=== PATIENT | male | born 1940 | race Caucasian/White ===

== ENCOUNTER 2017-03-15 09:38 | Day surgery (SDC) | payer OTHER ==
[~2017-03-15 09:38] MED LIST: NS 500 ML IV 500 ML IV ONE; VERSED ONE
[2017-03-15] MEDS ORDERED: TETRACAINE 0.5% OPHTH 1 DOSE AFFEYE ONE ×6 (09:45→12:46)
[2017-03-15] MEDS ORDERED: VIGAMOX 0.5% OPHTH 1 DOSE AFFEYE ONE ×6 (09:50→12:57)
[2017-03-15] MEDS ORDERED: PROLENSA OPHTH 1 DOSE AFFEYE ONE (10:01)
[2017-03-15] MEDS ORDERED: ALPHAGAN-P OPHTH 1 DOSE AFFEYE ONE (10:02)
[2017-03-15] MEDS ORDERED: AK-DILATE 2.5% OPHTH 1 DOSE OP ONE ×3 (10:03→10:05)
[2017-03-15] MEDS ORDERED: CYCLOGYL 1% OPHTH 1 DOSE OP ONE ×3 (10:03→10:05)
[2017-03-15] MEDS ORDERED: MYDRIACIL OPHTH 1 DOSE AFFEYE ONE ×3 (10:03→10:05)
[2017-03-15] MEDS ORDERED: VERSED IVP ONE ×2 (10:36→12:18)
[2017-03-15] MEDS ORDERED: AK-DILATE 10% OPHTH 1 DOSE AFFEYE ONE ×2 (10:36→12:21)
[2017-03-15] MEDS ORDERED: BETADINE OPHTH SOLN 5% EACHEYE ONE ×2 (12:33→12:46)
[2017-03-15] MEDS ORDERED: ADRENALINE CHL INJ IJ ONE ×2 (12:35→12:46)
[2017-03-15] MEDS ORDERED: XYLOCAINE-MPF 1% IJ ONE ×2 (12:35→12:46)
[2017-03-15] MEDS ORDERED: DUOVISC IO ONE (12:35)
[2017-03-15] MEDS ORDERED: BSS OPHTH (PLAIN) 500 ML with VANCOMYCIN HCL 500 MG VIAL 25 MG, ADRENALINE CHL INJ 1 MG IR ONE ×6 (12:36)
[2017-03-15 13:40] VITALS: BP 151/81
== END 2017-03-15 13:20 | disposition home or self-care (01) ==
LOC: SURG1 09:38
PROVIDERS: ATTEND Ophthalmology
PROC: 08RK3JZ Replacement of Left Lens with Synthetic Substitute, Percutaneous Approach (ICD-10-PCS; principal; 2017-03-15 14:15)
PROC: 08DK3ZZ Extraction of Left Lens, Percutaneous Approach (ICD-10-PCS; principal; 2017-03-15 14:15)
DX: H25.12 Age-related nuclear cataract, left eye (principal); H25.012 Cortical age-related cataract, left eye; H52.222 Regular astigmatism, left eye
CPT/HCPCS: 99100; V2797; A4217; J0170; J2250; J3370

== ENCOUNTER 2017-04-12 07:10 | Day surgery (SDC) | payer OTHER ==
[2017-04-12] MEDS ORDERED: TETRACAINE 0.5% OPHTH 1 DOSE AFFEYE ONE ×3 (08:00→09:44)
[2017-04-12] MEDS ORDERED: VIGAMOX 0.5% OPHTH 1 DOSE AFFEYE ONE ×5 (08:01→10:25)
[2017-04-12] MEDS ORDERED: VERSED ONE (08:05)
[2017-04-12] MEDS ORDERED: PROLENSA OPHTH 1 DOSE AFFEYE ONE (08:12)
[2017-04-12] MEDS ORDERED: ALPHAGAN-P OPHTH 1 DOSE AFFEYE ONE (08:13)
[2017-04-12] MEDS ORDERED: CYCLOGYL 1% OPHTH 1 DOSE OP ONE ×4 (08:14→08:20)
[2017-04-12] MEDS ORDERED: MYDRIACIL OPHTH 1 DOSE AFFEYE ONE ×4 (08:14→08:20)
[2017-04-12] MEDS ORDERED: AK-DILATE 2.5% OPHTH 1 DOSE OP ONE ×4 (08:14→08:20)
[2017-04-12] MEDS ORDERED: NS 500 ML IV 500 ML IV ONE (08:20)
[2017-04-12] MEDS ORDERED: VERSED IVP ONE ×2 (09:25→09:43)
[2017-04-12] MEDS ORDERED: AK-DILATE 10% OPHTH 1 DOSE AFFEYE ONE ×2 (09:46)
[2017-04-12] MEDS ORDERED: BETADINE OPHTH SOLN 5% EACHEYE ONE (09:51)
[2017-04-12] MEDS ORDERED: BSS OPHTH (PLAIN) 500 ML with VANCOMYCIN HCL 500 MG VIAL 25 MG, ADRENALINE CHL INJ 1 MG IR ONE ×3 (10:08)
[2017-04-12] MEDS ORDERED: XYLOCAINE-MPF 1% IJ ONE (10:08)
[2017-04-12] MEDS ORDERED: ADRENALINE CHL INJ IJ ONE (10:08)
[2017-04-12] MEDS ORDERED: DUOVISC IO ONE (10:08)
[2017-04-12 10:42] VITALS: BP 130/78
== END 2017-04-12 10:45 | disposition home or self-care (01) ==
LOC: SURG1 07:10
PROVIDERS: ATTEND Ophthalmology
PROC: 08RJ3JZ Replacement of Right Lens with Synthetic Substitute, Percutaneous Approach (ICD-10-PCS; principal; 2017-04-12 09:45)
PROC: 08DJ3ZZ Extraction of Right Lens, Percutaneous Approach (ICD-10-PCS; principal; 2017-04-12 09:45)
DX: H25.11 Age-related nuclear cataract, right eye (principal); H25.011 Cortical age-related cataract, right eye; H52.221 Regular astigmatism, right eye
CPT/HCPCS: 99100; V2797; A4217; J0170; J2250; J3370